=== PATIENT | male | born 1980 | race Caucasian/White ===

== ENCOUNTER → 2023-11-05 | Outpatient (CLI) | payer BC ==
[~2023-11-05] MED LIST: CIPRO 500MG TA500 MG PO; FLAGYL500 MG PO; Iohexol 300 - 100 ML VIAL IV ONE; LEXAPRO20 MG PO; NORCO 325 MG-51 TAB PO; NS 100 ML IV SCH
== END ==
LOC: COL.RAD 09:21
DX: K57.30 Diverticulosis of large intestine without perforation or abscess without bleeding (principal); R91.8 Other nonspecific abnormal finding of lung field
CPT/HCPCS: Q9967